=== PATIENT | male | born 1995 | race Two or more races ===

== ENCOUNTER 2022-03-22 22:40 | Emergency (ER) | payer SELFPAY ==
[~2022-03-22] VITALS: Ht 167.6 cm; Wt 79.5 kg
[2022-03-23] MEDS ORDERED: LORazepam 2 MG/ML VIAL IVP ONE
[2022-03-23 01:58] VITALS: BP 148/91
== END 2022-03-23 02:00 | disposition home or self-care (01) ==
LOC: EMS 22:45
DX: F41.9 Anxiety disorder, unspecified (principal); F15.90 Other stimulant use, unspecified, uncomplicated
CPT/HCPCS: 96374; 99283; J2060